=== PATIENT | female | born 2005 | race Two or more races ===

== ENCOUNTER 2024-04-25 22:02 | Observation (INO) | payer OTHER ==
[~2024-04-25] VITALS: Ht 165.1 cm; Wt 77.1 kg
[2024-04-25 22:55] VITALS: BP 119/70; PULSE 83; RESP 17; TEMP 98.1
[2024-04-25] MEDS: LACTATED RINGERS 1,000 ML IV ONE (23:32)
== END 2024-04-26 00:35 | disposition home or self-care (01) ==
LOC: MLD 22:02
PROVIDERS: ADMIT Obstetrics & Gynecology; ATTEND Obstetrics & Gynecology
DX: O26.893 Other specified pregnancy related conditions, third trimester (principal); R10.9 Unspecified abdominal pain; Z3A.36 36 weeks gestation of pregnancy; Z88.1 Allergy status to other antibiotic agents
CPT/HCPCS: 96360; G0378